=== PATIENT | male | born 1990 | race Caucasian/White ===

== ENCOUNTER 2023-09-14 13:45 | Outpatient (RCR) | payer BC, SELFPAY | END 2023-11-30 09:31 | disposition home or self-care (01) | PROVIDERS: PCP Physician Assistant Medical; Visit Provider Physician Assistant Medical | DX: M75.21 Bicipital tendinitis, right shoulder (principal); M77.8 Other enthesopathies, not elsewhere classified; Z51.89 Encounter for other specified aftercare | CPT/HCPCS: 97110; 97140; 97161 ==

== ENCOUNTER 2024-01-10 08:15 | Outpatient (RCR) | payer BC, SELFPAY | END 2024-03-06 12:21 | disposition home or self-care (01) | PROVIDERS: PCP Physician Assistant Medical; Visit Provider Physician Assistant Medical | DX: M25.531 Pain in right wrist (principal); M25.521 Pain in right elbow; Z51.89 Encounter for other specified aftercare | CPT/HCPCS: 97035; 97110; 97140; 97166; X5282 ==